=== PATIENT | female | born 1990 | race Two or more races ===

== ENCOUNTER 2019-04-19 07:05 | Inpatient (IN) | payer OTHER ==
[2019-04-19] MEDS ORDERED: PROMETHAZINE HCL 25 MG/1 ML VIAL IVPUSH ONE (08:40)
[2019-04-19] MEDS ORDERED: BUTORPHANOL TARTRATE 1 MG/ML VIAL IVPB PRN (08:40)
[2019-04-19] MEDS ORDERED: OXYTOCIN 30 UNITS in 0.9% NS 30 UNIT/500 ML INFUS.BAG IVPB SCH (08:45)
[2019-04-19] MEDS ORDERED: ELECTROLYTE-148 SOLN 1,000 ML IV SCH (08:45)
[2019-04-19 09:52] LABS: BASO % 0.2 % (0-2.0); EOS % 0.5 % (0-4.5); HEMATOCRIT 33.4 % (32.4-45.2); HEMOGLOBIN 11.1 GM/dL (10.7-15.3); LYMPH % 22.2 % (8-40); MCH 30.9 pg (25.7-33.7); MCHC 33.4 g/dl (32.0-36.0); MEAN CELL VOLUME 92.8 fl (80-96); MEAN PLT VOLUME 10.2 fl (7.5-11.1); MONO % 9.8 % (3.8-10.2); NEUT % 67.3 % (42.8-82.8); PLATELET COUNT 209 K/MM3 (134-434); RDW 15.3 % (11.6-15.6); WHITE BLOOD COUNT 6.3 K/mm3 (4.0-10.0)
[2019-04-19 09:58] LABS: INR 0.92 (0.83-1.09); PROTHROMBIN TIME (PATIENT) 10.8 SEC (9.7-13.0)
[2019-04-19 10:03] LABS: CALCIUM 9.1 mg/dL (8.5-10.1); CREATININE 0.7 mg/dL (0.55-1.3); POTASSIUM 4.3 mmol/L (3.5-5.1)
[2019-04-19 10:54] VITALS: BMI 35.2
[2019-04-19] MEDS ORDERED: ceFAZolin SODIUM 1 GM VIAL ONE (16:00)
[2019-04-19] MEDS ORDERED: morphine SULFATE/PF 0.5 MG/ML (2cc Syringe - QUVA) ONE (16:00)
[2019-04-19] MEDS ORDERED: ePHEDrine SULFATE 50 MG/1 ML AMPULE ONE (16:01)
[2019-04-19] MEDS ORDERED: DEXAMETHASONE SOD PHOSPHATE 4 MG/1 ML VIAL ONE (16:25)
[2019-04-19] MEDS ORDERED: OXYTOCIN 20 UNITS in 0.9% NS 20 UNIT/1,000 ML INFUS.BAG IV ONE ×2 (16:25→17:31)
[2019-04-19] MEDS ORDERED: ONDANSETRON 4 MG/2 ML VIAL IVPUSH PRN (16:37)
[2019-04-19] MEDS ORDERED: ACETAMINOPHEN 1000 MG/100 ML VIAL (NON FORMULARY) IVPB PRN (16:38)
[2019-04-19] MEDS ORDERED: IBUPROFEN 800 MG/8 ML IJ IVPB PRN ×2 (16:39→17:37)
[2019-04-19] MEDS ORDERED: KETOROLAC TROMETHAMINE 30 MG/1 ML VIAL ONE (17:01)
[2019-04-19] MEDS ORDERED: SENNOSIDES/DOCUSATE COMBO (SENNA PLUS) TABLET (UD) PO PRN (17:37)
[2019-04-19] MEDS ORDERED: oxyCODONE HCL 5 MG TABLET PO PRN (17:37)
[2019-04-19] MEDS ORDERED: METHYLERGONOVINE MALEATE 0.2 MG/1 ML AMP IM PRN (17:37)
[2019-04-19] MEDS ORDERED: D5W-LR W/ 20 UNITS OXYTOCIN 20 UNIT/1,000 ML INFUS.BAG IV SCH (17:45)
--- NOTE | 2019-04-19 18:02 | HP ---
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: Alzheimer's, CVA, Dementia, Migraine, Multiple Sclerosis, Peripheral Neuropathy, Parkinson's, Seizure, Syncope, TIA, Vertigo, Other Cardiovascular: No: AFIB, Aneurysm, Aortic Insufficiency, Aortic Stenosis, CAD, CHF, Deep Vein Thrombosis, HTN, Hyperlipdemia, OH, Mitral Insufficiency, Mitral Stenosis, Murmur, Pulmonary Hypertension, Other Pulmonary: No: Asthma, Bronchitis, Cancer, COPD, O2 Dependent, Pneumonia, Previously Intubated, Pulmonary Embolus, Pulmonary Fibrosis, Sleep Apnea, Other Gastrointestinal: No: Ascites, Cancer, Constipation, Crohn's Disease, Diverticulitis, Diverticulosis, Esophageal Varices, Gastritis, GERD, GI Bleed, Hemorrhoids, Hiatal Hernia, Inflamatory Bowel Disease, Irritable Bowel Disease, Pancreatitis, Peptic Ulcer Disease, Ulcerative Colitis, Other Hepatobiliary: No: Cirrhosis, Cholelithiasis, Cholecystitis, Choledocholithiasis , Hepatitis A, Hepatitis B, Hepatitis C, Other Renal/: No: Renal Failure, Renal Inusuff, BPH, Cancer, Hematuria, Hemodialysis , Neurogenic Bladder, Renal Calculi, UTI, Other Reproductive: No: Ectopic , Endometriosis, Fibroids, PID, Polycystic Ovary Syndrome, Postmenopausal, Other ...: 4 ...Para: 0 ...Term: 0 ...: 0 ...Spon : 0 ...Induced : 3 ...Multiple Gestation: 0 ...LMP: 07/16/18 ... Weeks Gestation by Dates: 39.4 ...EDC by Dates: 04/22/19 ...EDC by Sono: 04/22/19 Heme/Onc: No: Anemia, B12 Deficiency, Bleeding Disorder, Cancer, Current Chemotherapy, Current Radiation Therapy, Hemochromatosis, Hypercoaguable State, Myeloproliferative Synd, Sickle Cell Disease, Sickle Cell Trait, Thrombocytopenia, Other Infectious Disease: No: AIDS, C-Diff, Herpes Zoster, HIV, MRSA, STD's, Tuberculosis, VREF, Other Psych: No: Addictions, Anxiety, Bipolar, Depression, Panic, Psychosis, Schizophrenia, Other Musculoskeletal: No: Bursitis, Chronic low back pain, Hemiparesis, Hemiplegia, Osteoarthritis, Paraplegia, Other Rheumatology: No: Fibromyalgia, Gout, Lupus, Rheumatoid Arthritis, Sarcoidosis, Vasculitis, Other ENT: No: Allergic Rhinitis, Sinusitis, Other Endocrine: No: Nez Perce's Disease, Skyler's Disease, Diabetes Insipidus, Diabetes Mellitus, Hyperparathyroidism, Hyperthyroidism, Hypothyroidism, Osteopenia, SIADH, Other Dermatology: No: Basal Cell, Cellulitis, Eczema, Melanoma, Psoriasis, Squamous Cell, Other Additional Medical History: headache, anxiety - Past Surgical History Past Surgical History: No: None, AAA Repair, AICD, Amputation, Appendectomy, Arthrosocopy, AV Fistula/Graft, Bariatric Surgery, Breast Biopsy, Bypass, CABG, Carotid Endarterectomy, Cataract Removal, Cholecystectomy, Colectomy, Colonoscopy, Colostomy, Craniotomy, , Cystectomy, Hernia Repair, Hysterectomy, Ileal Conduit, Ileosotomy, Joint Replacement, Kidney Transplant, Laminectomy, Liver Transplant, Mastectomy, Nephrectomy, Oopherectomy, Orchiectomy, Permanent Pacemaker, Prostatectomy, Splenectomy, Stent, Thoracotomy , TURP, Tonsillectomy, Tubal Ligation, Upper Endoscopy, Valve Replacement, Vasectomy, Vein Stripping/Ligation Hx Myomectomy: No Hx Transabdominal Cerclage: No - Advance Directives Advance Directives: Yes: Living Will - Smoking History Smoking history: Never smoked Have you smoked in the past 12 months: No - Alcohol/Substance Use Hx Alcohol Use: No History of Substance Use: reports: None - Social History Usual Living Arrangement: Yes: With Spouse ADL: Independent History of Recent Travel: No Home Medications - Allergies Allergies/Adverse Reactions: Allergies Allergy/AdvReac Type Severity Reaction Status Date / Time peanut Allergy Intermediate Swelling Verified 04/19/19 10:31 No Known Drug Allergies Allergy Verified 04/19/19 10:31 - Home Medications Home Medications: Ambulatory Orders Famotidine 20 mg PO DAILY 04/19/19 Ondansetron HCl [Zofran] 4 mg PO DAILY PRN 04/19/19 Pnv No.95/Ferrous Fum/Folic AC [ Vitamin Tablet] 1 each PO DAILY Family Disease History - Family Disease History Family History: Denies Review of Systems - Review of Systems Constitutional: reports: No Symptoms Eyes: reports: No Symptoms HENT: reports: No Symptoms Neck: reports: No Symptoms Cardiovascular: reports: No Symptoms Respiratory: reports: No Symptoms Gastrointestinal: reports: No Symptoms Genitourinary: reports: No Symptoms Breasts: reports: No Symptoms Reported Musculoskeletal: reports: No Symptoms Integumentary: reports: No Symptoms Neurological: reports: Headache Endocrine: reports: No Symptoms Hematology/Lymphatic: reports: No Symptoms Psychiatric: reports: Anxiety Pain Intensity: 0 Physical Exam - Maternity Vital Signs: Vital Signs Temperature 98.1 F 04/19/19 14:00 Pulse Rate 77 04/19/19 15:00 Respiratory Rate 20 04/19/19 15:00 Blood Pressure 122/64 04/19/19 15:00 O2 Sat by Pulse Oximetry (%) Constitutional: Yes: Well Nourished, No Distress, Calm Eyes: Yes: WNL, Conjunctiva Clear, EOM Intact HENT: Yes: WNL, Atraumatic, Normocephalic Neck: Yes: WNL, Supple, Trachea Midline Cardiovascular: Yes: WNL, Regular Rate and Rhythm Lungs: Clear to auscultation Breast(s): Yes: WNL - Abdominal Exam/OB Fundal Height: 36 Number of Fetuses: Single Presentation: Vertex Contractions: Yes Regularity: Irregular Intensity: Mild Monitor Mode: External Heart Rate Location: [facility] Category: I Accelerations: Uniform Decelerations: Variable - Vaginal Exam/OB Vaginal Bleediing: No Speculum Exam: No Dilatation (cm): 1 Effacement (%): 25 Amniotic Membrane Status: Intact Presentation: Vertex/Position Station: -2 - Physical Exam Musculoskeletal: Yes: WNL Extremities: Yes: WNL Edema: Yes Edema: LUE: 1+, RUE: 1+, LLE: 1+, RLE: 1+ Integumentary: Yes: WNL Deep Tendon Reflex Grade: Normal +2 ...Motor Strength: WNL Psychiatric: Yes: WNL, Alert, Oriented - Labs Lab Results: CBC, BMP 04/19/19 09:30 04/19/19 09:30 Hemorrhage Risk Assessment - Risk Factors Risk Score: 0 Risk Level: Low Risk Assessment/Plan for induction for iugr,
--- NOTE | 2019-04-19 18:04 | PN ---
Progress Note (short form) - Note Progress Note: 12 noon, nst cat 2 occasionally, back to cat 1, sometime long period of minimal variability, 2 variable deccel this am , but recovered, will continue to observe , if worsen, pt agreed for c s
--- NOTE | 2019-04-19 18:06 | PN ---
Progress Note (short form) - Note Progress Note: 3 pm. same on and off cat 1 to cat 2 nst, recovered, continue pitocin, and obseve, not asking for pain medications , uc q 3 min
--- NOTE | 2019-04-19 18:07 | PN ---
Progress Note (short form) - Note Progress Note: aprox 4 pm, bradycardia, prolong deccel x 2 min, for c s roxanna , moving to or roxanna
--- NOTE | 2019-04-19 18:16 | OP ---
Operative Note - Note: Operative Date: 04/19/19 Pre-Operative Diagnosis: non reassuring fht, Operation: primary lt c s Findings: no can, but cord is very torturous Post-Operative Diagnosis: Same as Pre-op Surgeon: Jeronimo Swift Utility Gelatin Maker: Nancy Green Anesthesiologist/HABITAT BIOLOGIST: Sara Thomas Anesthesia: Spinal Estimated Blood Loss (mls): 500 Operative Report Dictated: Yes
[2019-04-19] MEDS ORDERED: OXYTOCIN 20 UNITS in 0.9% NS 20 UNIT/1,000 ML INFUS.BAG IV SCH (19:00)
[2019-04-19] MEDS ORDERED: ONDANSETRON 4 MG/2 ML VIAL IVPUSH ONE (21:34)
[2019-04-20 09:20] LABS: BASO % 0.1 % (0-2.0); HEMATOCRIT 29.3 % (32.4-45.2); HEMOGLOBIN 9.9 GM/dL (10.7-15.3); LYMPH % 10.9 % (8-40); MCH 31.4 pg (25.7-33.7); MCHC 33.7 g/dl (32.0-36.0); MEAN CELL VOLUME 93.3 fl (80-96); MEAN PLT VOLUME 10.7 fl (7.5-11.1); MONO % 9.9 % (3.8-10.2); NEUT % 79.1 % (42.8-82.8); PLATELET COUNT 192 K/MM3 (134-434); RBC 3.15 M/mm3 (3.60-5.2); RDW 15.5 % (11.6-15.6); WHITE BLOOD COUNT 8.7 K/mm3 (4.0-10.0)
[2019-04-20] MEDS: ENOXAPARIN NA (PORCINE) 40 MG/0.4 ML DISP.SYRIN SQ SCH (10:07)
[2019-04-20] MEDS: SIMETHICONE 80 MG TAB.CHEW (FP) PO PRN ×2 (10:07→21:34)
--- NOTE | 2019-04-20 12:16 | OP ---
DATE OF OPERATION: 04/19/2019 PREOPERATIVE DIAGNOSIS: Non-reassuring heart rate tracing and intrauterine growth restriction. POSTOPERATIVE DIAGNOSIS: Non-reassuring heart rate tracing and intrauterine growth restriction and very tortuous umbilical cord. PROCEDURE: Primary low transverse section. SURGEON: Jeronimo Swift MD TAX ASSOCIATE ATTORNEY: SOTO Morin ANESTHESIA: Spinal anesthesia. ANESTHESIOLOGIST: Debra Alvarez MD INDICATIONS: This is a 28-year-old female patient who has been followed up with a perinatologist for the IUGR of the 10th percentile. Patients baby was predicted to weigh 5 pounds 14 ounces last week. Today, she should be about 6 pounds 2 ounces. So, patient was brought in to be induced because of the patients IUGR, and the patient also complained of decreased movement. So, patient went through the labor process, and the patient was admitted, and patient had a variable deceleration in the morning, but recovered, and the variabilities occasional and minimal, a category 2 tracing, but recovered to category 1 with moderate variability and acceleration was present. So, patient went to the morning until finally examined at 8:00 in the morning until about 1:00 in the morning, still on and off of category 2 and recovered about 3:00, and patient still had the same category 1 category 2 tracing back and forth, and all the risks and benefits were explained to the patient. Patient had artificial rupture of membranes 1 cm at 1:00, and patient clear fluid, and the patient was explained about possible if heart tracing continued to have a category 2 tracing, and patient is remote from delivery. Patient agreed to at this point, and so, as we walked out, it was about 3:30 4:00, and we were just getting her consent and getting C-secton ready, and we walked in the room. Patient had a big prolonged deceleration about 2 minutes and was resuscitated with oxygen and changed position, and the heart slowly recovered, but this time, we had moved her quickly into the for . So, heartbeat was recovered, so, patient received spinal anesthesia, and after good anesthesia was obtained, patient was placed on the operating table in supine position. DESCRIPTION OF PROCEDURE: Patients abdomen and pelvis were prepped and draped in the usual sterile manner. A Pfannenstiel incision was made, incision was made through the skin and subcutaneous tissue until the fascia was nicked in the midline. Then, the fascia was extended bilaterally. Intraperitoneal cavity was entered. Bladder flap was created. Low transverse segment uterus was entered. Baby was delivered from HÉCTOR position. There was no cord wrapped, and the neck was seen. However, cord was very tortuous, and no meconium was seen. Baby was handed over to patient service associate after umbilical cord doubly clamped and cut. Cord blood gas was obtained. Placenta was removed. Uterus closed in single layer, first with interlocking Vicryl sutures. Good hemostasis. Both gutters cleaned. Both ovaries, fallopian tubes, and uterus within normal limits. No complication. Both fallopian tubes and ovaries were within normal limits. No complications. Peritoneum was closed, fascia was closed, skin was closed. Good hemostasis. No complications. Blood loss about 500 mL. Transferred to recovery room in stable condition. MD TIMOTHY HARRISON/[id number]
[2019-04-20] MEDS ORDERED: BISACODYL 10 MG SUPP.RECT RC ONE (16:00)
--- NOTE | 2019-04-20 16:06 | PN ---
Post Progress Note Post Day: 1 Type of Delivery: Primary C/S Vital Signs: Vital Signs Temperature 98.7 F 04/20/19 09:00 Pulse Rate 75 04/20/19 09:00 Respiratory Rate 20 04/20/19 14:00 Blood Pressure 105/53 L 04/20/19 09:00 O2 Sat by Pulse Oximetry (%) 98 04/19/19 17:55 Breast Exam: Yes: Soft Uterus: Yes: Fundus Firm, Fundus below umbilicus Incision: Yes: Dressing dry and intact, Sutures intact Abdomen/GI: Yes: Abdomen soft, Passing flatus, Tolerating PO Lochia: Yes: Serosa Lochia, amount: Small Extremities: Yes: Calves non-tender Perineum: Yes: Intact Activity: Ambulating - Labs Labs: CBC WBC 8.7 K/mm3 (4.0-10.0) 04/20/19 07:30 RBC 3.15 M/mm3 (3.60-5.2) L 04/20/19 07:30 Hgb 9.9 GM/dL (10.7-15.3) L 04/20/19 07:30 Hct 29.3 % (32.4-45.2) L 04/20/19 07:30 MCV 93.3 fl (80-96) 04/20/19 07:30 MCH 31.4 pg (25.7-33.7) 04/20/19 07:30 MCHC 33.7 g/dl (32.0-36.0) 04/20/19 07:30 RDW 15.5 % (11.6-15.6) 04/20/19 07:30 Plt Count 192 K/MM3 (134-434) 04/20/19 07:30 MPV 10.7 fl (7.5-11.1) 04/20/19 07:30 Absolute Neuts (auto) 6.8 K/mm3 (1.5-8.0) 04/20/19 07:30 Neutrophils % 79.1 % (42.8-82.8) 04/20/19 07:30 Lymphocytes % 10.9 % (8-40) D 04/20/19 07:30 Monocytes % 9.9 % (3.8-10.2) 04/20/19 07:30 Eosinophils % 0.0 % (0-4.5) D 04/20/19 07:30 Basophils % 0.1 % (0-2.0) 04/20/19 07:30 Nucleated RBC % 0 % (0-0) 04/20/19 07:30 Assessment/Plan doing well, no complaints
[2019-04-20] MEDS ORDERED: BISACODYL 10 MG SUPP.RECT RC PRN (17:38)
[2019-04-20] MEDS: oxyCODONE HCL 5 MG TABLET PO PRN (21:34)
[2019-04-20] MEDS: IBUPROFEN 600 MG TABLET (FP) PO PRN (21:34)
[2019-04-21] MEDS: IBUPROFEN 600 MG TABLET (FP) PO PRN ×3 (05:39→17:34)
[2019-04-21] MEDS: SIMETHICONE 80 MG TAB.CHEW (FP) PO PRN ×4 (05:39→17:33)
[2019-04-21] MEDS: oxyCODONE HCL 5 MG TABLET PO PRN ×3 (05:39→17:34)
[2019-04-21] MEDS: ENOXAPARIN NA (PORCINE) 40 MG/0.4 ML DISP.SYRIN SQ SCH (09:22)
--- NOTE | 2019-04-21 10:10 | PN ---
Progress Note (short form) - Note Progress Note: Anesthesia post op note, POD#2 S/P under spinal with duramorph. pat seen and examined. VSS, ambulating. Pain controlled with po meds. No apparent post anesthesia complications.
[2019-04-22] MEDS: SIMETHICONE 80 MG TAB.CHEW (FP) PO PRN ×3 (00:16→13:37)
[2019-04-22] MEDS: IBUPROFEN 600 MG TABLET (FP) PO PRN ×3 (00:16→13:37)
[2019-04-22] MEDS: oxyCODONE HCL 5 MG TABLET PO PRN ×3 (00:17→13:38)
[2019-04-22 08:45] LABS: BASO % 0.3 % (0-2.0); EOS % 1.2 % (0-4.5); HEMATOCRIT 28.2 % (32.4-45.2); HEMOGLOBIN 9.5 GM/dL (10.7-15.3); MCH 31.3 pg (25.7-33.7); MCHC 33.8 g/dl (32.0-36.0); MEAN CELL VOLUME 92.7 fl (80-96); MEAN PLT VOLUME 9.9 fl (7.5-11.1); MONO % 10.1 % (3.8-10.2); NEUT % 62.4 % (42.8-82.8); PLATELET COUNT 201 K/MM3 (134-434); RBC 3.04 M/mm3 (3.60-5.2); RDW 15.4 % (11.6-15.6); WHITE BLOOD COUNT 6.4 K/mm3 (4.0-10.0)
[2019-04-22] MEDS: ENOXAPARIN NA (PORCINE) 40 MG/0.4 ML DISP.SYRIN SQ SCH (09:50)
[2019-04-22 10:48] VITALS: BP 108/71; PULSE 77; TEMP 98.2
--- NOTE | 2019-04-22 13:56 | PN ---
Post Progress Note Post Day: 3 Type of Delivery: Primary C/S Vital Signs: Vital Signs Temperature 98.2 F 04/22/19 10:00 Pulse Rate 77 04/22/19 10:00 Respiratory Rate 18 04/22/19 10:00 Blood Pressure 108/71 04/22/19 10:00 O2 Sat by Pulse Oximetry (%) 98 04/19/19 17:55 Breast Exam: Yes: Soft Uterus: Yes: Fundus Firm, Fundus below umbilicus Incision: Yes: Dressing dry and intact, Sutures intact Abdomen/GI: Yes: Abdomen soft, Passing flatus, Tolerating PO Lochia: Yes: Serosa Lochia, amount: Small Extremities: Yes: Calves non-tender Perineum: Yes: Intact Activity: Ambulating - Labs Labs: CBC WBC 6.4 K/mm3 (4.0-10.0) 04/22/19 07:52 RBC 3.04 M/mm3 (3.60-5.2) L 04/22/19 07:52 Hgb 9.5 GM/dL (10.7-15.3) L 04/22/19 07:52 Hct 28.2 % (32.4-45.2) L 04/22/19 07:52 MCV 92.7 fl (80-96) 04/22/19 07:52 MCH 31.3 pg (25.7-33.7) 04/22/19 07:52 MCHC 33.8 g/dl (32.0-36.0) 04/22/19 07:52 RDW 15.4 % (11.6-15.6) 04/22/19 07:52 Plt Count 201 K/MM3 (134-434) 04/22/19 07:52 MPV 9.9 fl (7.5-11.1) 04/22/19 07:52 Absolute Neuts (auto) 4.0 K/mm3 (1.5-8.0) 04/22/19 07:52 Neutrophils % 62.4 % (42.8-82.8) D 04/22/19 07:52 Lymphocytes % 26.0 % (8-40) D 04/22/19 07:52 Monocytes % 10.1 % (3.8-10.2) 04/22/19 07:52 Eosinophils % 1.2 % (0-4.5) D 04/22/19 07:52 Basophils % 0.3 % (0-2.0) 04/22/19 07:52 Nucleated RBC % 0 % (0-0) 04/22/19 07:52 Assessment/Plan dc pt home today
--- NOTE | 2019-04-22 13:58 | DS ---
Physical Exam-COOK HELPER JUICE Vital Signs: Vital Signs Temperature 98.2 F 04/22/19 10:00 Pulse Rate 77 04/22/19 10:00 Respiratory Rate 18 04/22/19 10:00 Blood Pressure 108/71 04/22/19 10:00 O2 Sat by Pulse Oximetry (%) 98 04/19/19 17:55 Constitutional: Yes: Well Nourished, No Distress, Calm Eyes: Yes: WNL, Conjunctiva Clear, EOM Intact HENT: Yes: WNL, Atraumatic, Normocephalic Neck: Yes: WNL, Supple, Trachea Midline Cardiovascular: Yes: WNL, Regular Rate and Rhythm Respiratory: Yes: WNL, Regular, CTA Bilaterally Gastrointestinal: Yes: WNL, Normal Bowel Sounds, Soft ...Rectal Exam: Yes: WNL Renal/: Yes: WNL Pelvis: Yes: WNL External Genitalia: Yes: Normal Internal Exam Deferred: No Vaginal Exam: Yes: Normal Cervix: Yes: Normal Uterus: Yes: Normal Adnexa: Normal: Bilateral ....Post : Yes: Uterus firm, Uterus non-tender Breast(s): Yes: WNL Musculoskeletal: Yes: WNL Extremities: Yes: WNL Edema: Yes Edema: LUE: 1+, RUE: 1+, LLE: 1+, RLE: 1+ Integumentary: Yes: WNL Wound/Incision: Yes: Clean/Dry, Well Approximated Neurological: Yes: WNL, Alert, Oriented ...Motor Strength: WNL Psychiatric: Yes: WNL, Alert, Oriented Labs: CBC, BMP 04/22/19 07:52 04/19/19 09:30 Delivery - Delivery Type of Anesthesia: Spinal Episiotomy/Laceration: None EBL (cc): 500 Delivery, Single - Stages of Labor Date 1st Stage Initiatied: 04/19/19 Time 1st Stage Initiated: 13:00 Date of Delivery: 04/19/19 Time of Delivery: 16:19 Time Placenta Delivered: 16:20 - Condition of Infant Clinical Geneticist/Web Site Developer Present: Yes Name: Mayela Welch Gender: Female Weight: 3.033 kg Position: Right, OT Total Hours ROM (Hrs/Mins): 3hrs 22min - 1 Minute Total Score: 9 5 Minutes Total Score: 9 - Feeding Plan Initial Plan: Exclusive throughout hospitalization Discharge Summary Reason For Visit: INDUCTION OF LABOR Condition: Stable - Instructions Diet, Activity, Other Instructions: regular Disposition: HOME - Home Medications Comprehensive Discharge Medication List: Ambulatory Orders Famotidine 20 mg PO DAILY 04/19/19 Ondansetron HCl [Zofran] 4 mg PO DAILY PRN 04/19/19 Pnv No.95/Ferrous Fum/Folic AC [ Vitamin Tablet] 1 each PO DAILY
--- NOTE | 2019-04-22 15:46 | SURG ---
Surgery Big Data Admin Note Big Data Admin: Nancy Green PA-C Date of Service: 04/22/19 Diagnosis: non reassuring fht, Procedure: primary lt c s I was present for the entirety of the operative procedure. For further detail, please refer to operative report. Visit type - Case Type Case Type: Scheduled - Emergency Emergency Visit: No - New patient This patient is new to me today: Yes Date on this admission: 04/22/19
== END 2019-04-22 14:30 | disposition home or self-care (01) | DRG 788 ==
LOC: JLDR 07:05 → J3W 19:53
PROVIDERS: ADMIT Obstetrics & Gynecology; ATTEND Obstetrics & Gynecology
PROC: 10D00Z1 Extraction of Products of Conception, Low, Open Approach (ICD-10-PCS; principal; 2019-04-19)
DX: O76 Abnormality in fetal heart rate and rhythm complicating labor and delivery (principal); O36.5930 Maternal care for other known or suspected poor fetal growth, third trimester, not applicable or unspecified; Z3A.39 39 weeks gestation of pregnancy; Z37.0 Single live birth
CPT/HCPCS: 36415; 80048; 85025; 85610; 85730; 86593; 86850; 86900; 86901